=== PATIENT | female | born 1960 | race Caucasian/White ===

== ENCOUNTER 2017-10-24 08:07 | Day surgery (SDC) | payer BC ==
[~2017-10-24] VITALS: Ht 177.8 cm; Wt 125.0 kg
[~2017-10-24 08:07] MED LIST: ACYCLOVIR800 MG PO; ADVAIR 100/501 DISK IH; CARTIA XT120 MG PO; CELEBREX200 MG PO; DIFLUCAN100 MG PO; FLONASE16 G1 BOTH NARES; FLOVENT DISKUS1 DIS2 IH; FOLIC ACID1 MG PO; LEUCOVORIN CALC25 MG PO; LEVAQUIN500 MG PO; METOPROLOL TART50 MG PO; MONTELUKAST SOD10 MG PO; MOTRIN600 MG PO; OS-CAL 500+D C1 EAC1 PO; PROTONIX40 MG PO; Rocaltrol PO; SERTRALINE HCL100 MG PO; SINGULAIR10 MG PO; SYNTHROID200 MCG PO; SYNTHROID50 MCG PO; TRAMADOL HCL50 MG PO; Tums,OsCal PO; VENTOLIN HFA18 GM IH; ZANTAC300 MG PO
== END 2017-10-24 11:00 | disposition home or self-care (01) ==
LOC: CATH 08:07
DX: I87.8 Other specified disorders of veins (principal); C85.90 Non-Hodgkin lymphoma, unspecified, unspecified site; J45.909 Unspecified asthma, uncomplicated; K21.9 Gastro-esophageal reflux disease without esophagitis; I10 Essential (primary) hypertension; E03.9 Hypothyroidism, unspecified; D64.9 Anemia, unspecified
CPT/HCPCS: C1751; C1894; J0690; J1644; J2250; J3010; S0020

== ENCOUNTER → 2018-02-17 | Outpatient (CLI) | payer BC ==
[~2018-02-17] MED LIST changes: +BACTRIM,SEPT1 TABLET PO; +COLACE100 MG PO; +DECADRON PO; +LASIX20 MG/2 ML IV; +LASIX40 MG PO; +ONDANSETRON HCL8 MG PO; +OXYCODONE HCL10 MG PO
== END | disposition home or self-care (01) ==
LOC: CDC 14:12
DX: Z01.810 Encounter for preprocedural cardiovascular examination (principal); S71.001A Unspecified open wound, right hip, initial encounter; S71.101A Unspecified open wound, right thigh, initial encounter
CPT/HCPCS: 93000

== ENCOUNTER 2018-02-19 10:05 | Observation (INO) | payer BC ==
[~2018-02-19] VITALS: Ht 177.8 cm; Wt 127.0 kg
[~2018-02-19 10:05] MED LIST changes: -COLACE100 MG PO; -ONDANSETRON HCL8 MG PO; -OXYCODONE HCL10 MG PO
[2018-02-19 10:28] VITALS: BP 137/63
[2018-02-19] MEDS ORDERED: OXYCODONE HCL10 MG PO (13:57)
[2018-02-19] MEDS ORDERED: ONDANSETRON HCL8 MG PO (13:57)
[2018-02-19] MEDS ORDERED: COLACE100 MG PO (13:57)
[2018-02-19 16:00] VITALS: BP 125/58
[2018-02-19 16:27] VITALS: BP 125/58
[2018-02-20 00:08] VITALS: BP 95/53
[2018-02-20 08:05] VITALS: BP 111/56
[2018-02-20 12:24] VITALS: BP 119/67
== END 2018-02-20 16:20 | disposition home or self-care (01) ==
LOC: SDC → 2EAST 12:12 → 2SOUTH 12:12 → ENRESERV 12:29 → 2EAST 15:10 → SDC 15:58 → 2EAST 02-20 16:20
PROC: 0JBL0ZZ Excision of Right Upper Leg Subcutaneous Tissue and Fascia, Open Approach (ICD-10-PCS; principal; 2018-02-19)
DX: S71.101A Unspecified open wound, right thigh, initial encounter (principal); B96.89 Other specified bacterial agents as the cause of diseases classified elsewhere; Z16.10 Resistance to unspecified beta lactam antibiotics; C86.6 Primary cutaneous CD30-positive T-cell proliferations; C85.90 Non-Hodgkin lymphoma, unspecified, unspecified site; D50.0 Iron deficiency anemia secondary to blood loss (chronic); K21.9 Gastro-esophageal reflux disease without esophagitis; F41.1 Generalized anxiety disorder; E89.0 Postprocedural hypothyroidism; J45.20 Mild intermittent asthma, uncomplicated; E66.01 Morbid (severe) obesity due to excess calories; E55.9 Vitamin D deficiency, unspecified; Z68.41 Body mass index [BMI] 40.0-44.9, adult
CPT/HCPCS: 87070; 87075; 87076; 87185; 87205; 87641; 94640; G0378; J0690; J1100; J1644; J2405; J2710; J3010; J7643

== ENCOUNTER 2018-02-28 02:06 | Emergency (ER) | payer BC ==
[~2018-02-28] VITALS: Ht 177.8 cm; Wt 131.5 kg
[~2018-02-28 02:06] MED LIST changes: +COLACE100 MG PO; +ONDANSETRON HCL8 MG PO; +OXYCODONE HCL10 MG PO
[2018-02-28 05:12] VITALS: BP 148/72
== END 2018-02-28 05:13 | disposition home or self-care (01) ==
LOC: EME 02:06
DX: Z46.89 Encounter for fitting and adjustment of other specified devices (principal); I10 Essential (primary) hypertension; J45.909 Unspecified asthma, uncomplicated; K21.9 Gastro-esophageal reflux disease without esophagitis; F41.9 Anxiety disorder, unspecified
CPT/HCPCS: 99281; 99284

== ENCOUNTER 2018-03-09 16:14 | Inpatient (IN) | payer BC ==
[~2018-03-09] VITALS: Ht 177.8 cm; Wt 134.5 kg
[2018-03-09 17:42] LABS: BASOPHIL (%) 0.1 % (0-1); EOSINOPHIL (%) 4.7 % (0-5); EOSINOPHIL COUNT 0.6 K/uL (0-0.3); HEMATOCRIT 27.1 % (36.0-46.0); IMMATURE GRANULOCYTE (%) 0.7 % (0.0-0.7); LYMPHOCYTE (%) 5.5 % (15-42); LYMPHOCYTE COUNT 0.7 K/uL (1.0-2.8); MCH 25.5 PG (29.0-34.0); MCV 82.4 FL (83-99); MONOCYTE (%) 5.1 % (3-12); MONOCYTE COUNT 0.6 K/uL (0-0.8); NEUTROPHIL (%) 83.9 % (45-76); NEUTROPHIL COUNT 10.3 K/uL (1.8-6.4); PLATELET COUNT 237 K/uL (156-360); RBC DIS.WIDTH-CV 16.7 % (11.8-14.6); RBC DIS.WIDTH-SD 49.5 % (39-53); RED BLOOD COUNT 3.29 M/uL (3.80-5.20); WHITE BLOOD COUNT 12.3 K/uL (4.1-10.2)
[2018-03-09 17:43] LABS: HEMOGLOBIN 8.4 G/DL (11.9-15.5)
[2018-03-09 17:47] LABS: INTER. NORMALIZED RATIO 1.3
[2018-03-09 17:50] LABS: ALBUMIN 2.7 g/dL (3.2-4.8); CHLORIDE 104 mEq/L (99-109); POTASSIUM 4.2 mEq/L (3.7-5.4); PTT 28.7 SEC (25-37); SODIUM 139 mEq/L (136-147)
[2018-03-09 17:51] LABS: MAGNESIUM 1.8 mg/dL (1.3-2.7)
[2018-03-09 17:53] LABS: GLUCOSE 107 mg/dL (70-99); TOTAL PROTEIN 4.8 g/dL (6.4-8.3)
[2018-03-09 17:55] LABS: TOTAL BILIRUBIN 0.4 mg/dL (0.0-1.0)
[2018-03-09 17:56] LABS: ALKALINE PHOSPHATASE 74 IU/L (3-129); SERUM ETHYL ALCOHOL < 10 mg/dL
[2018-03-09 17:57] LABS: GFR ESTIMATE (CALCULATED) > 59 mL/min/
[2018-03-09 17:58] LABS: AST (GOT) 7 IU/L (2-34); UREA NITROGEN (BUN) 18 mg/dL (9-23)
[2018-03-09 18:00] LABS: ALT (GPT) 6 IU/L (3-49)
[2018-03-09 18:03] LABS: TROP-I INTERPRETATION NEGATIVE; TROPONIN-I 0.02 ng/mL (0.0-0.30)
[2018-03-09 18:48] LABS: THYROTROPIN (TSH) 4.5 MIU/L (0.4-5.5)
[2018-03-09 19:57] LABS: APPEARANCE CLEAR ((CLEAR)); BILIRUBIN NEGATIVE; BLOOD SMALL; COLOR YELLOW ((YELLOW)); GLUCOSE (STRIP) NEGATIVE; KETONES NEGATIVE; LEUKOCYTES NEGATIVE; NITRITE NEGATIVE; PROTEIN (STRIP) 30; SPECIFIC GRAVITY 1.019 (1.000-1.030); UROBILINOGEN 0.2 MG/DL (0.2-1.0)
[2018-03-09 20:05] LABS: AMPHETAMINE NEGATIVE (500 ng/mL); BARBITURATES NEGATIVE (200 ng/mL); BENZODIAZEPINES NEGATIVE (150 ng/mL); BUPRENORPHINE NEGATIVE (10 ng/mL); COCAINE NEGATIVE (150 ng/mL); METHADONE NEGATIVE (200 ng/mL); METHAMPHETAMINE NEGATIVE (500 ng/mL); OPIATES (MORPHINE) PRESUMPTIVE POSITIVE (100 ng/mL); OXYCODONE NEGATIVE (100 ng/mL); PHENCYCLIDINE NEGATIVE (25 ng/mL); PROPOXYPHENE NEGATIVE (300 ng/mL); THC CANNABINOIDS NEGATIVE (50 ng/mL); TRICYCLIC ANTIDEPRESSANTS NEGATIVE (300 ng/mL)
[2018-03-09 20:12] LABS: BACTERIA NONE SEEN /HPF; EPITHELIAL CELLS RARE /HPF; HYALINE CASTS 0-5 /LPF; MUCUS TRACE /LPF; RED BLOOD CELLS 0-5 /HPF (0-5); WHITE BLOOD CELLS 0-5 /HPF (0-5)
[2018-03-09] MEDS ORDERED: ZOLOFT50 MG PO (21:12)
[2018-03-09] MEDS ORDERED: SYNTHROID25 MCG PO (21:14)
[2018-03-09] MEDS ORDERED: TYLENOL EXTRA500 MG PO (21:18)
[2018-03-09] MEDS ORDERED: OXYCODONE HCL10 MG PO (21:19)
[2018-03-09] MEDS ORDERED: COLACE100 MG PO (21:20)
[2018-03-09] MEDS ORDERED: PROVENTIL,2.5 MG/3 M IH (21:21)
[2018-03-09] MEDS ORDERED: XOPENEX0.63 MG/3 IH (21:21)
[2018-03-09] MEDS ORDERED: CHEWABLE-VITE1 EACH PO (21:23)
[2018-03-09] MEDS ORDERED: SUPER CALCIUM600 MG PO (21:24)
[2018-03-09] MEDS ORDERED: VITAMIN D310000 UNI1 PO (21:24)
[2018-03-09] MEDS ORDERED: ZITHROMAX250 MG PO (21:27)
[2018-03-09 22:28] VITALS: BP 120/59
[2018-03-09 22:32] LABS: INTER. NORMALIZED RATIO 1.4
[2018-03-09 22:34] LABS: PTT 29.2 SEC (25-37)
[2018-03-10 00:58] LABS: TROP-I INTERPRETATION NEGATIVE; TROPONIN-I 0.02 ng/mL (0.0-0.30)
[2018-03-10 03:49] VITALS: BP 139/69
[2018-03-10 05:34] LABS: HEMATOCRIT 26.3 % (36.0-46.0); HEMOGLOBIN 7.9 G/DL (11.9-15.5); MCH 25.2 PG (29.0-34.0); PLATELET COUNT 237 K/uL (156-360); RBC DIS.WIDTH-CV 17.1 % (11.8-14.6); RBC DIS.WIDTH-SD 51.6 % (39-53); RED BLOOD COUNT 3.13 M/uL (3.80-5.20); WHITE BLOOD COUNT 10.9 K/uL (4.1-10.2)
[2018-03-10 05:51] LABS: TROP-I INTERPRETATION NEGATIVE; TROPONIN-I 0.02 ng/mL (0.0-0.30)
[2018-03-10 06:03] LABS: ALBUMIN 2.4 G/DL (3.2-4.8); ALKALINE PHOSPHATASE 62 IU/L (3-129); ALT (GPT) 3 IU/L (3-49); AST (GOT) 8 IU/L (2-34); CHLORIDE 103 MEQ/L (99-109); GFR ESTIMATE (CALCULATED) > 59 mL/min/; GLUCOSE 94 mg/dL (70-99); POTASSIUM 4.3 MEQ/L (3.7-5.4); SODIUM 137 MEQ/L (136-147); TOTAL BILIRUBIN 0.3 MG/DL (0.0-1.0); TOTAL PROTEIN 4.4 G/DL (6.4-8.3); UREA NITROGEN (BUN) 15 mg/dL (9-23)
[2018-03-10 09:16] VITALS: BP 126/60
[2018-03-10 12:06] VITALS: BP 112/56
[2018-03-10 14:43] VITALS: BP 125/61
[2018-03-10 19:00] VITALS: BP 135/76
[2018-03-10 23:43] VITALS: BP 124/58
[2018-03-11 03:48] VITALS: BP 125/57
[2018-03-11 08:15] VITALS: BP 122/56
[2018-03-11] MEDS ORDERED: ELIQUIS5 MG PO (10:19)
[2018-03-11 11:59] VITALS: BP 139/63
[2018-03-11] MEDS ORDERED: CEFDINIR300 MG PO (15:04)
[2018-03-11] MEDS ORDERED: PREDNISONE10 MG PO (15:06)
[2018-03-11 16:17] VITALS: BP 143/59
[2018-03-11] MEDS ORDERED: ADVAIR 250/501 DISK IH (17:49)
[2018-03-11 19:00] VITALS: BP 132/67
[2018-03-11 23:33] VITALS: BP 150/71
[2018-03-12 04:00] VITALS: BP 127/85
[2018-03-12 08:00] VITALS: BP 115/62
[2018-03-12 08:05] VITALS: BP 115/62
[2018-03-12 10:56] LABS: HEMATOCRIT 26.8 % (36.0-46.0); HEMOGLOBIN 8.1 G/DL (11.9-15.5); MCH 25.5 PG (29.0-34.0); MCHC 30.2 G/DL (30.0-36.0); MCV 84.3 FL (83-99); PLATELET COUNT 258 K/uL (156-360); RBC DIS.WIDTH-CV 16.5 % (11.8-14.6); RBC DIS.WIDTH-SD 51.1 % (39-53); RED BLOOD COUNT 3.18 M/uL (3.80-5.20)
== END 2018-03-12 15:33 | disposition home or self-care (01) | DRG 176 ==
LOC: EME 16:14 → EDOF 20:26 → ENRESERV 20:30 → 4SOUTH 21:41
PROVIDERS: Emergency Medicine; Physician Assistant; Physician Assistant Medical
DX: I26.99 Other pulmonary embolism without acute cor pulmonale (principal); F41.9 Anxiety disorder, unspecified; I10 Essential (primary) hypertension; D64.9 Anemia, unspecified; R00.0 Tachycardia, unspecified; R11.2 Nausea with vomiting, unspecified; R42 Dizziness and giddiness; I48.91 Unspecified atrial fibrillation; R00.2 Palpitations; C78.7 Secondary malignant neoplasm of liver and intrahepatic bile duct; J45.909 Unspecified asthma, uncomplicated; C84.00 Mycosis fungoides, unspecified site; L03.115 Cellulitis of right lower limb; E66.01 Morbid (severe) obesity due to excess calories; I47.1 Supraventricular tachycardia; K21.9 Gastro-esophageal reflux disease without esophagitis; Z90.710 Acquired absence of both cervix and uterus; Z85.72 Personal history of non-Hodgkin lymphomas; Z90.49 Acquired absence of other specified parts of digestive tract; Z79.899 Other long term (current) drug therapy; Z92.21 Personal history of antineoplastic chemotherapy; Z92.3 Personal history of irradiation; Z68.41 Body mass index [BMI] 40.0-44.9, adult
CPT/HCPCS: 71045; 71275; 80053; 81003; 82272; 83735; 84443; 84484; 84999; 85025; 85027; 85610; 85730; 86850; 86900; 86901; 87641; 93005; 94640; 94640 76; 94760; 94799; 99202; 99213; 99281; 99285; A6260; G0480; J0696; J2405; J2930; J7030; J7512

== ENCOUNTER 2018-04-02 15:26 | Inpatient (IN) | payer BC ==
[~2018-04-02] VITALS: Ht 177.8 cm; Wt 143.1 kg
[~2018-04-02 15:26] MED LIST changes: +ADVAIR 250/501 DISK IH; +CEFDINIR300 MG PO; +CHEWABLE-VITE1 EACH PO; +ELIQUIS5 MG PO; +PREDNISONE10 MG PO; +PROVENTIL,2.5 MG/3 M IH; +SUPER CALCIUM600 MG PO; +SYNTHROID25 MCG PO; +TYLENOL EXTRA500 MG PO; +VITAMIN D310000 UNI1 PO; +XOPENEX0.63 MG/3 IH; +ZITHROMAX250 MG PO; +ZOLOFT50 MG PO
[2018-04-02 16:49] LABS: HEMATOCRIT 34.7 % (36.0-46.0); HEMOGLOBIN 10.5 G/DL (11.9-15.5); MCH 25.1 PG (29.0-34.0); MCHC 30.3 G/DL (30.0-36.0); PLATELET COUNT 181 K/uL (156-360); RBC DIS.WIDTH-CV 18.9 % (11.8-14.6); RBC DIS.WIDTH-SD 55.9 % (39-53); RED BLOOD COUNT 4.18 M/uL (3.80-5.20); WHITE BLOOD COUNT 23.4 K/uL (4.1-10.2)
[2018-04-02 16:59] LABS: INTER. NORMALIZED RATIO 2.1
[2018-04-02 17:03] LABS: ALBUMIN 2.6 g/dL (3.2-4.8)
[2018-04-02 17:04] LABS: CHLORIDE 99 mEq/L (99-109); POTASSIUM 5.8 mEq/L (3.7-5.4); SODIUM 134 mEq/L (136-147)
[2018-04-02 17:06] LABS: GLUCOSE 97 mg/dL (70-99); TOTAL PROTEIN 5.2 g/dL (6.4-8.3)
[2018-04-02 17:08] LABS: TOTAL BILIRUBIN 0.9 mg/dL (0.0-1.0)
[2018-04-02 17:09] LABS: ALKALINE PHOSPHATASE 75 IU/L (3-129)
[2018-04-02 17:10] LABS: GFR ESTIMATE (CALCULATED) > 59 mL/min/
[2018-04-02 17:11] LABS: AST (GOT) 19 IU/L (2-34); UREA NITROGEN (BUN) 25 mg/dL (9-23)
[2018-04-02 17:12] LABS: ALT (GPT) 7 IU/L (3-49)
[2018-04-02 17:15] LABS: TROP-I INTERPRETATION NEGATIVE; TROPONIN-I 0.07 ng/mL (0.0-0.30)
[2018-04-02 17:34] LABS: PTT 32.1 SEC (25-37)
[2018-04-02 18:02] LABS: ABS NEUTROPHIL COUNT 22.1; ANISOCYTOSIS 1+; BAND NEUTROPHILS 7.9 % (0-8.0); EOSINOPHIL ABS CT 0.6; EOSINOPHILS 2.6 % (0-5.0); LYMPHOCYTES 1.8 % (15.0-45.0); MICROCYTOSIS 1+; MONOCYTES 1.3 % (0-9.0); PLAT.SUFFICIENCY ADEQUATE; POIKILOCYTOSIS 1+; SEG.NEUTROPHILS 86.4 % (46.0-76.0); TOX.VACUOLIZATION 2+
[2018-04-02] MEDS ORDERED: ELIQUIS5 MG PO (18:30)
[2018-04-02] MEDS ORDERED: ADVAIR 250/501 DISK IH (18:31)
[2018-04-02] MEDS ORDERED: PREDNISONE10 MG PO (18:33)
[2018-04-02] MEDS ORDERED: SENNA8.6 MG PO (18:34)
[2018-04-02] MEDS ORDERED: ATIVAN0.5 MG PO (18:34)
[2018-04-02] MEDS ORDERED: TESSALON PERLE100 MG PO (18:34)
[2018-04-02 22:06] LABS: APPEARANCE TURBID ((CLEAR)); BILIRUBIN NEGATIVE; BLOOD MODERATE; COLOR YELLOW ((YELLOW)); GLUCOSE (STRIP) NEGATIVE; KETONES 5; LEUKOCYTES MODERATE; NITRITE NEGATIVE; PROTEIN (STRIP) 30; SPECIFIC GRAVITY 1.029 (1.000-1.030); UROBILINOGEN 0.2 MG/DL (0.2-1.0)
[2018-04-02 22:42] LABS: RED BLOOD CELLS 0-5 /HPF (0-5); WHITE BLOOD CELLS 0-5 /HPF (0-5)
[2018-04-02 22:43] LABS: AMORPHOUS URATES CRYSTALS 2+; BACTERIA 3+ /HPF; EPITHELIAL CELLS 1+ /HPF; MUCUS NONE SEEN /LPF; UCUL ADDED? YES
[2018-04-03 01:53] LABS: CHLORIDE 101 mEq/L (99-109); SODIUM 135 mEq/L (136-147)
[2018-04-03 01:54] LABS: GLUCOSE 120 mg/dL (70-99)
[2018-04-03 01:58] LABS: GFR ESTIMATE (CALCULATED) > 59 mL/min/
[2018-04-03 01:59] LABS: UREA NITROGEN (BUN) 24 mg/dL (9-23)
[2018-04-03 02:04] LABS: POTASSIUM 4.4 mEq/L (3.7-5.4)
[2018-04-03 02:45] LABS: TROP-I INTERPRETATION NEGATIVE; TROPONIN-I 0.12 ng/mL (0.0-0.30)
[2018-04-03 03:30] VITALS: BP 118/57
[2018-04-03 08:56] LABS: HEMATOCRIT 29.9 % (36.0-46.0); HEMOGLOBIN 8.8 G/DL (11.9-15.5); MCH 25.1 PG (29.0-34.0); MCHC 29.4 G/DL (30.0-36.0); MCV 85.2 FL (83-99); PLATELET COUNT 206 K/uL (156-360); RBC DIS.WIDTH-SD 57.6 % (39-53); RED BLOOD COUNT 3.51 M/uL (3.80-5.20)
[2018-04-03 09:01] VITALS: BP 117/64
[2018-04-03 09:33] LABS: CHLORIDE 101 MEQ/L (99-109); CREATININE 1.2 MG/DL (0.6-1.3); GFR ESTIMATE (CALCULATED) 49 mL/min/; GLUCOSE 139 mg/dL (70-99); POTASSIUM 4.8 MEQ/L (3.7-5.4); SODIUM 138 MEQ/L (136-147); UREA NITROGEN (BUN) 25 mg/dL (9-23)
[2018-04-03 09:47] LABS: ABS NEUTROPHIL COUNT 17.2; ANISOCYTOSIS 1+; BAND NEUTROPHILS 12.2 % (0-8.0); EOSINOPHIL ABS CT 0.2; EOSINOPHILS 0.9 % (0-5.0); LYMPHOCYTES 1.7 % (15.0-45.0); MICROCYTOSIS 1+; MONOCYTES 1.7 % (0-9.0); PLAT.SUFFICIENCY ADEQUATE; POIKILOCYTOSIS 1+; POLYCHROMASIA 1+; SEG.NEUTROPHILS 83.5 % (46.0-76.0)
[2018-04-03 10:38] LABS: TROP-I INTERPRETATION NEGATIVE; TROPONIN-I 0.08 ng/mL (0.0-0.30)
[2018-04-03 11:27] VITALS: BP 146/72
[2018-04-03 16:40] VITALS: BP 120/58
[2018-04-03 21:00] VITALS: BP 128/57
[2018-04-03 23:27] VITALS: BP 130/58
[2018-04-04 04:27] VITALS: BP 147/82
[2018-04-04 07:18] VITALS: BP 125/62
[2018-04-04 09:47] LABS: HEMATOCRIT 27.8 % (36.0-46.0); HEMOGLOBIN 8.1 G/DL (11.9-15.5); MCHC 29.1 G/DL (30.0-36.0); MCV 85.8 FL (83-99); PLATELET COUNT 191 K/uL (156-360); RBC DIS.WIDTH-CV 18.8 % (11.8-14.6); RBC DIS.WIDTH-SD 58.2 % (39-53); RED BLOOD COUNT 3.24 M/uL (3.80-5.20); WHITE BLOOD COUNT 13.8 K/uL (4.1-10.2)
[2018-04-04 10:03] LABS: CHLORIDE 103 MEQ/L (99-109); CREATININE 1.1 MG/DL (0.6-1.3); GFR ESTIMATE (CALCULATED) 54 mL/min/; GLUCOSE 152 mg/dL (70-99); POTASSIUM 3.9 MEQ/L (3.7-5.4); SODIUM 138 MEQ/L (136-147); UREA NITROGEN (BUN) 25 mg/dL (9-23)
[2018-04-04 10:57] VITALS: BP 130/60
[2018-04-04 15:43] VITALS: BP 141/64
[2018-04-04 21:39] VITALS: BP 121/56
[2018-04-05 00:35] VITALS: BP 135/74
[2018-04-05 04:25] VITALS: BP 148/65
[2018-04-05 05:40] LABS: HEMATOCRIT 26.7 % (36.0-46.0); HEMOGLOBIN 7.7 G/DL (11.9-15.5); MCH 25.1 PG (29.0-34.0); MCHC 28.8 G/DL (30.0-36.0); PLATELET COUNT 185 K/uL (156-360); RBC DIS.WIDTH-CV 18.7 % (11.8-14.6); RBC DIS.WIDTH-SD 58.7 % (39-53); RED BLOOD COUNT 3.07 M/uL (3.80-5.20); WHITE BLOOD COUNT 10.5 K/uL (4.1-10.2)
[2018-04-05 06:03] LABS: CHLORIDE 104 MEQ/L (99-109); GFR ESTIMATE (CALCULATED) > 59 mL/min/; GLUCOSE 124 mg/dL (70-99); POTASSIUM 4.3 MEQ/L (3.7-5.4); SODIUM 140 MEQ/L (136-147); UREA NITROGEN (BUN) 21 mg/dL (9-23)
[2018-04-05 06:33] LABS: ABS NEUTROPHIL COUNT 8.6; BAND NEUTROPHILS 2.8 % (0-8.0); EOSINOPHIL ABS CT 0.5; EOSINOPHILS 4.6 % (0-5.0); LYMPHOCYTES 6.5 % (15.0-45.0); MONOCYTES 7.4 % (0-9.0); NUCLEATED RBC'S 0.9; SEG.NEUTROPHILS 78.7 % (46.0-76.0); SMUDGE CELLS 6.5
[2018-04-05 07:21] VITALS: BP 145/67
[2018-04-05 08:35] LABS: HEMATOCRIT 27.3 % (36.0-46.0); MCV 86.1 FL (83-99)
[2018-04-05 11:37] VITALS: BP 134/68
== END 2018-04-05 13:19 | disposition home health service (06) | DRG 872 ==
LOC: EME 15:26 → EDOF 04-03 01:29 → ENRESERV 04-03 01:30 → 4EAST 04-03 03:30
PROVIDERS: Emergency Medicine; Hospitalist
PROC: 5A2204Z Restoration of Cardiac Rhythm, Single (ICD-10-PCS; principal; 2018-04-03)
DX: A41.9 Sepsis, unspecified organism (principal); R65.20 Severe sepsis without septic shock; L03.115 Cellulitis of right lower limb; I48.92 Unspecified atrial flutter; I48.0 Paroxysmal atrial fibrillation; E87.2 Acidosis; T81.89XA Other complications of procedures, not elsewhere classified, initial encounter; Y83.8 Other surgical procedures as the cause of abnormal reaction of the patient, or of later complication, without mention of misadventure at the time of the procedure; C84.A5 Cutaneous T-cell lymphoma, unspecified, lymph nodes of inguinal region and lower limb; C84.00 Mycosis fungoides, unspecified site; C85.89 Other specified types of non-Hodgkin lymphoma, extranodal and solid organ sites; L89.312 Pressure ulcer of right buttock, stage 2; I10 Essential (primary) hypertension; F41.9 Anxiety disorder, unspecified; K21.9 Gastro-esophageal reflux disease without esophagitis; J45.901 Unspecified asthma with (acute) exacerbation; J96.11 Chronic respiratory failure with hypoxia; D64.9 Anemia, unspecified; E66.01 Morbid (severe) obesity due to excess calories; E89.0 Postprocedural hypothyroidism; Z99.81 Dependence on supplemental oxygen; Z86.711 Personal history of pulmonary embolism; Z79.01 Long term (current) use of anticoagulants; Z79.891 Long term (current) use of opiate analgesic; Z86.14 Personal history of Methicillin resistant Staphylococcus aureus infection; Z68.41 Body mass index [BMI] 40.0-44.9, adult
CPT/HCPCS: 71045; 71275; 80048; 80048 91; 80053; 80202; 81003; 82272; 83605; 83880; 84484; 85014; 85018; 85025; 85027; 85610; 85730; 87040; 87086; 93005; 93306; 93970; 94640; 94799; 97597; 97598; 99281; 99285; J1160; J1720; J2250; J2543; J3010; J3370; J7030; J7050; J7512